=== PATIENT | male | born 1990 | race Caucasian/White ===

== ENCOUNTER 2018-06-07 07:17 | Emergency (ER) | payer BC ==
[~2018-06-07] VITALS: Ht 172.7 cm; Wt 65.8 kg
--- NOTE | 2018-06-07 07:17 | NUR ---
BROUGHT BACK TO BED #8 AND TRIAGED. REPORT GIVEN TO DEMARCUS
--- NOTE | 2018-06-07 07:25 | NUR ---
ER Dr. RICARDO at bedside examining patient.
[2018-06-07 07:27] VITALS: BP_SYST 139
[2018-06-07] MEDS ORDERED: HYDROcodone/ACETAMIN 10-325 MG TAB PO ONE (07:45)
[2018-06-07] MEDS ORDERED: IBUPROFEN 800 MG TABLET PO ONE (07:45)
[2018-06-07] MEDS ORDERED: PROPARACAINE (OPTHANINE 0.5%) 15 ML DROPS OP ONE (08:00)
[2018-06-07] MEDS ORDERED: FLUORESCEIN SODIUM 1 MG OPHTHALMIC STRIP OP ONE (08:00)
--- NOTE | 2018-06-07 08:14 | NUR ---
MEDICATED ORDERED. WILL MONITOR, AT BEDSIDE FOR SUPPORT. EXPLAINED TO PT THAT HE WILL NOT BE ABLE TO DRIVE HOME, STATES SHE WILL DRIVE.
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
[2018-06-07 09:05] VITALS: BP_SYST 116
--- NOTE | 2018-06-07 09:05 | NUR ---
Patient given written and verbal discharge instructions and verbalizes understanding. ER MD discussed with patient the results and treatment provided. Patient in stable condition. ID arm band removed. Rx of OFLOXACIN AND MOTRIN given. Patient educated on pain management and to follow up with PMD. Pain Scale 0/10. Opportunity for questions provided and answered. Medication side effect fact sheet provided. PATIENT IN GOOD CONDITION AND IN NO ACUTE DISTRESS. PT VERBALIZED RELIEF FROM EYE PAIN AND BILATERAL EAR RINGING. PT NOTED WITH A STABLE GAIT.
== END 2018-06-07 09:05 | disposition home or self-care (01) ==
LOC: SED 07:17
DX: S00.83XA Contusion of other part of head, initial encounter (principal); S05.02XA Injury of conjunctiva and corneal abrasion without foreign body, left eye, initial encounter; S05.01XA Injury of conjunctiva and corneal abrasion without foreign body, right eye, initial encounter; W20.8XXA Other cause of strike by thrown, projected or falling object, initial encounter; Y93.89 Activity, other specified; Y92.89 Other specified places as the place of occurrence of the external cause; Y99.8 Other external cause status
CPT/HCPCS: 70450-TC; 99284